=== PATIENT | female | born 2000 | race Caucasian/White ===

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

== ENCOUNTER → 2019-07-04 | Outpatient (CLI) | payer OTHER ==
--- NOTE | 2019-07-04 15:44 | RADIOLOGY REPORT (SQ) ---
EXAM DESCRIPTION: U/S THYROID/SFT TISS HD NECK COMPLETED DATE/TIME: 07/04/2019 3:31 pm REASON FOR STUDY: E07.9 DISORDER OF THYROID, UNSPECIFIED E07.9 DISORDER OF THYROID, UNSPECIFIED COMPARISON: None. TECHNIQUE: Dynamic and static de la rosa-scale images acquired of the thyroid gland. Selected additional c olor/power Doppler images recorded. All images stored to PACS. LIMITATIONS: None. FINDINGS: RIGHT LOBE: The right lobe of the thyroid gland measures 3.7 x 1.3 x 1.4 cm, normal size. Homogeneous echotexture. No cystic or solid masses. LEFT LOBE: The thyroid gland measures 3.5 x 1.0 x 1.0 cm, normal size. Homogeneous echotexture. No cystic or solid masses. ISTHMUS: The isthmus measures 1.9 mm in AP diameter, normal size. Homogeneous echotexture. No cyst ic or solid masses. OTHER: No other significant finding. IMPRESSION: 1. Examination is unremarkable sonographically. TECHNICAL DOCUMENTATION: JOB ID: [id number] Draft- All Rights Reserved Reading location - IP/workstation name: [email or web address]
== END ==
LOC: RAD 15:13
PROVIDERS: ATTEND Student in an Organized Health Care Education/Training Program
DX: E07.9 Disorder of thyroid, unspecified (principal)
CPT/HCPCS: 76536